=== PATIENT | female | born 2000 | race Caucasian/White ===

== ENCOUNTER → 2020-04-16 | Outpatient (CLI) | payer OTHER ==
[~2020-04-16] MED LIST: BACTRIM PED152.22 ML PO; BENTYL 10MG10 MG/CAP PO; CALCI-CHEW500 MG PO; CETIRIZINE; LACTULOSE10 GM/152 PO; MULTI JUNIOR W/1 TAB PO; OMNICEF 121500 MG/60 PO; VENTOLIN0.09 MG IH
== END ==
LOC: ZCOL.LAB 20:41
DX: B34.9 Viral infection, unspecified (principal); Z20.828 Contact with and (suspected) exposure to other viral communicable diseases

== ENCOUNTER 2020-12-30 15:21 | Outpatient (RCR) | payer OTHER | END 2021-03-30 | disposition home or self-care (01) | LOC: WSOH | DX: Z91.038 Other insect allergy status (principal); J45.909 Unspecified asthma, uncomplicated; W57.XXXA Bitten or stung by nonvenomous insect and other nonvenomous arthropods, initial encounter; Z90.89 Acquired absence of other organs; Y99.0 Civilian activity done for income or pay ==

== ENCOUNTER 2024-01-14 14:55 | Emergency (ER) | payer OTHER ==
[~2024-01-14] VITALS: Ht 170.2 cm; Wt 93.2 kg
[2024-01-14 15:05] VITALS: TEMP 98.2
[2024-01-14] MEDS ORDERED: NS 1,000 ML IV ONE (17:15)
[2024-01-14 17:21] LABS: COLLECTION METHOD CLEAN CATCH
[2024-01-14 17:25] LABS: BASO % 0.3 % (0.0-2.0); EOS # 0.1 K/mm3 (0.0-0.7); EOS % 0.6 % (0.0-4.0); GRAN # 8.4 K/mm3 (1.4-6.5); HEMATOCRIT 37.9 % (37.0-47.0); HEMOGLOBIN 12.9 g/dl (12.5-16.0); LYMPH # 2.1 K/mm3 (1.2-3.4); LYMPH % 18.8 % (20.0-51.0); MEAN CELL VOLUME 85 fl (80.0-100.0); MEAN CORPUSCULAR HEMOGLOBIN 29 pg (27-31); MEAN CORPUSCULAR HGB CONC 34 g/dl (33.0-37.0); MONO # 0.6 K/mm3 (0.1-0.6); MONO % 4.9 % (1.7-9.3); PLATELET COUNT 243 K/mm3 (130-400); RED BLOOD COUNT 4.45 M/mm3 (4.10-5.30); REDCELL DISTRIBUTION WIDTH-CV 12.8 % (11.5-14.5)
[2024-01-14 17:30] LABS: URINE APPEARANCE CLOUDY (CLEAR/HAZY); URINE BLOOD NEGATIVE (NEGATIVE); URINE COLOR Dark Yellow (YELLOW); URINE GLUCOSE NEGATIVE (NEGATIVE); URINE KETONE 2+ (NEGATIVE); URINE NITRATE NEGATIVE (NEGATIVE); URINE PROTEIN(semi-quant) TRACE (NEGATIVE)
[2024-01-14 17:35] LABS: ALBUMIN 3.8 g/dL (3.5-5.0); BILIRUBIN,TOTAL 0.3 mg/dL (0.2-1.2); CALCIUM 9.4 mg/dL (8.4-10.2); CREATININE, serum 0.59 mg/dL (0.57-1.11); POTASSIUM 3.3 mEq/L (3.5-4.5)
[2024-01-14] MEDS ORDERED: CEPHALEXIN500 M1 PO (19:09)
[2024-01-14] MEDS ORDERED: cefTRIAXone 1 G in Water For Injection,Sterile 10 ML IV ONE (19:15)
[2024-01-14] MEDS ORDERED: Acetaminophen 500 MG TAB PO ONE (19:15)
[2024-01-14 19:35] VITALS: BP 130/82; PULSE 92
== END 2024-01-14 19:35 | disposition home or self-care (01) ==
LOC: COL.ER 14:55
PROVIDERS: Physician Assistant
DX: O23.42 Unspecified infection of urinary tract in pregnancy, second trimester (principal); N39.0 Urinary tract infection, site not specified; Z3A.18 18 weeks gestation of pregnancy
CPT/HCPCS: J0696; J2765; J7030